=== PATIENT | male | born 1985 | race Caucasian/White ===

== ENCOUNTER 2024-02-08 17:43 | Emergency (ER) | payer MEDICAID, SELFPAY ==
[2024-02-08 18:46] VITALS: BP 122/81; PULSE 97; RESP 18; TEMP 37.2; O2SAT 97
--- NOTE | 2024-02-08 19:07 | XR_ITS ---
Examination: PA lateral chest 2 views Technique: Upright PA lateral chest 2 views Exam date and time: 09/08 2023 1910 hrs. Indications: Coughing beginning 3 days ago. Findings: Normal heart size Suspicious for early pneumonia in the lingular segment left upper lobe Right lung clear Impression: Suspicious for early pneumonia in the lingular segment left upper lobe
--- NOTE | 2024-02-08 19:07 | PD.EDURI ---
Upper Respiratory Inf. RME/HPI General Chief Complaint: General Adult/Misc Complain Stated Complaint: SPITTING UP BLOOD Time Seen by Provider: 02/08/24 19:00 Source: patient Arrival date/time: 02/08/24 17:43 38-year-old male past medical history of everyday smoker presents emergency department complaining of cough and 1 episode of phlegm tinged with blood according the patient. Patient [place] any fever, chills, shortness of breath, weight loss, night sweats, chest pain, or any other associated symptoms. Mode of arrival: ambulatory Limitations: no limitations Related Data Previous Rx's ?Medication ?Instructions ?Recorded azithromycin 250 mg tablet See Rx Instructions PO .COMPLEX #6 02/08/24 tabs ibuprofen 600 mg tablet 600 mg PO Q8H PRN pain #20 tabs 02/08/24 Allergies Allergy/AdvReac Type Severity Reaction Status Date / Time NKA* Allergy Uncoded 02/08/24 17:47 Review of Systems Review of Systems Systems Reviewed: All systems reviewed, normal except as documented Constitutional Constitutional: Reports system reviewed and no additional complaints, except as documented, Denies body ache(s), Denies chills and Denies fever(s) Eyes Eyes: Reports system reviewed and no additional complaints, except as documented and Denies change in vision ENT Ears, Nose, Mouth, and Throat: Reports system reviewed and no additional complaints, except as documented, Denies disequilibrium, Denies dizziness, Denies sore throat and Denies vertigo Cardiovascular Cardiovascular: Reports system reviewed and no additional complaints, except as documented, Denies chest pain and Denies dyspnea Respiratory Respiratory: Reports system reviewed and no additional complaints, except as documented, Denies chest congestion, Reports cough, Denies dyspnea and Reports hemoptysis Gastrointestinal Gastrointestinal: Reports system reviewed and no additional complaints, except as documented, Denies abdominal pain, Denies nausea and Denies vomiting Musculoskeletal Musculoskeletal: Reports system reviewed and no additional complaints, except as documented, Denies abnormal gait and Denies arthralgias Integumentary/Breasts Skin/Breast: Reports system reviewed and no additional complaints, except as documented, Denies erythema, Denies rash and Denies wounds Neurologic Neurologic: Reports system reviewed and no additional complaints, except as documented, Denies abnormal gait, Denies disequilibrium, Denies dizziness and Denies vertigo Past Medical History Social History SMOKING STATUS: Light (< 1 pack/day) ED Exam General Limitations: Present no limitations General appearance: Present alert and in no apparent distress Head Head exam: Present atraumatic Eye Eye exam: Present normal appearance, PERRL and EOMI ENT ENT exam: Present normal exam, normal oropharynx and mucous membranes moist Neck Neck exam: Present normal inspection, full ROM and trachea midline Chest Chest inspection: Present normal inspection and symmetric chest wall rise Respiratory Respiratory exam: Present normal lung sounds bilaterally Cardiovascular Cardiovascular exam: Present regular rate, normal rhythm and normal heart sounds Abdominal Exam Abdominal exam: Present soft and normal bowel sounds Extremities Exam Extremities exam: Present normal inspection and full ROM Back Exam Back exam: Present normal inspection and full ROM Neurological Exam Neurological exam: Present alert, oriented X3 and CN II-XII intact Psychiatric Psychiatric exam: Present normal affect and normal mood Skin Skin exam: Present warm, dry, intact and normal color Course Quality Measures none Orders Category Date Time Status XR chest 2V Stat Exams 02/08/24 19:07 Completed Ibuprofen Tab [Motrin Tab] Med 02/08/24 20:25 Discontinued 600 mg PO X1 ONE Vital Signs Vital signs: Vital Signs Temperature 98.9 F 02/08/24 18:46 Pulse Rate 97 02/08/24 18:46 Respiratory Rate 18 02/08/24 18:46 Blood Pressure 122/81 02/08/24 18:46 Pulse Oximetry (%) 97 02/08/24 18:46 Oxygen Delivery Method Room Air 02/08/24 18:46 97% room air within normal limits Upper Respiratory Infection MDM Narrative MDM Narrative:: 38-year-old male past medical history of everyday smoker presents emergency department complaining of cough and 1 episode of phlegm tinged with blood according the patient. Patient Nuys any fever, chills, shortness of breath, weight loss, night sweats, chest pain, or any other associated symptoms. Patient not appear to be in any respiratory distress and speaking in full sentences. Chest x-ray findings left upper lobe pneumonia. Patient appears nontoxic and hemodynamic stable. Patient discharged oral antibiotics instructed to follow-up with primary care provider and return to emergency department for any worsening symptoms or as needed. Patient data External records reviewed:: None Clinical information provided by:: patient Social determinants that could affect healthcare access:: none Patient has the following chronic illnesses:: Everyday smoker How is presenting disease/condition affected by chronic disease/condition?: exacerbated by Evaluation data The following diagnostics were reviewed and interpreted by me:: radiology exam(s) Lab and/or radiology exams considered but not ordered:: Ordered Interpretation Summary: Interpreted by me Medications / Prescriptions Medications or Prescriptions considered but not ordered:: Ordered Medication administrations:: Medication Administration History Discontinued Medications Ibuprofen (Ibuprofen Tab 600 Mg Tablet) 600 mg PO X1 ONE Stop: 02/08/24 20:26 Last Admin: 02/08/24 20:39 Dose: 600 mg Documented By: EE Given Consultations Consultation(s) initiated? (list below): No Diagnosis Upper Respiratory Differential Diagnosis: upper respiratory infection, viral infection, bronchitis, influenza and pharyngitis Most likely diagnosis given after review of the tests above:: Pneumonia Admission Indicated Admission indicated?: not indicated Admission Request Was there a request for admission?: No Disposition Plan Disposition Plan: Discharge Discharge Attestation Discharge Attestation: The patient and all family members were given an opportunity to ask questions and understood the discharge instructions. Discharge instructions specifically effects, indications for sooner follow up or return to the emergency department, and the expected course of current diagnosis. Patient condition: Stable Discharge Plan Plan Patient Disposition: HOME (Self Care) Disposition Comment: Stable Prescriptions/Referrals Prescriptions/Med Rec: New azithromycin 250 mg tablet See Rx Instructions .ROUTE .COMPLEX Qty: 6 0RF Rx Instructions: For 250 mg dose pack: take 500 mg today (day 1), then 250 mg for 4 days (days 2-5) ibuprofen 600 mg tablet 600 mg PO Q8H PRN (Reason: pain) Qty: 20 0RF Referrals: No Primary/Family,Physician [Primary Care Provider] - In 1 week Problem List Clinical Impression: Community acquired pneumonia Patient/Caregiver Discharge Instructions Discharge Activity: activity as tolerated Education Materials: ED Pneumonia (Adult) Additional Instructions: Take antibiotic as prescribed. Drink plenty of fluids to look for secretions. Follow-up with primary care provider in 2 to 3 days. Return to emergency department for any worsening symptoms or as needed. Print Language: Ugandan Stand Alone Forms: Krista Award Info., Patient Portal Info Letter PA/[employer] Supervising Physician PA/[employer] Supervising Physician: Dr. King
[2024-02-08] MEDS: IBUPROFEN TAB 600 MG TABLET PO (20:39)
== END 2024-02-08 20:41 | disposition home or self-care (01) ==
PROVIDERS: Emergency Provider Emergency Medicine
DX: J18.9 Pneumonia, unspecified organism (principal); F17.210 Nicotine dependence, cigarettes, uncomplicated
CPT/HCPCS: 71046; 99283; A9270

== ENCOUNTER → 2024-03-04 | Outpatient (CLI) | payer MEDICAID, SELFPAY ==
--- NOTE | 2024-03-04 09:04 | XR_ITS ---
Examination: PA lateral chest 2 views TECHNIQUE: Upright PA lateral chest 2 views Exam date and time: March 04, 2024 0916 hours Comparison February 08, 2024 INDICATIONS: Chest pain beginning 2 weeks ago FINDINGS: Normal heart size No current pneumonia The osseous structures are intact IMPRESSION: No pneumonia or pulmonary edema
== END | disposition home or self-care (01) ==
LOC: CDIM 08:54
DX: R07.9 Chest pain, unspecified (principal)
CPT/HCPCS: 71046

== ENCOUNTER 2024-09-04 20:06 | Emergency (ER) | payer MEDICAID, SELFPAY ==
[2024-09-04 20:07] VITALS: BMI 25.2
[2024-09-04 20:20] VITALS: BP 122/83; PULSE 90; RESP 18; TEMP 36.7; O2SAT 99
--- NOTE | 2024-09-04 20:50 | XR_ITS ---
Examination: Abdomen sonogram, complete Date and time of exam: September 04, 2024 2116 hours INDICATIONS: Abdominal pain with hematemesis today. Technique: Multiple real-time grayscale transabdominal sonographic images of the abdomen have been obtained. Findings: 4 mm gallbladder polyp Gallbladder sludge ball Negative for cholelithiasis, negative for cholecystitis Normal common bile duct 0.3 cm Pancreatic head 2.2 cm Aorta not enlarged Liver 11.7 cm fatty infiltration irregular contour Normal hepatopedal portal venous flow Date and IVC Right kidney 9.6 cm renal cortex 1.1 cm Left kidney 10.5 cm cortex 1.8 cm Spleen 8.6 cm IMPRESSION: Negative for cholelithiasis, negative for cholecystitis Suspect primary hepatocellular disease
--- NOTE | 2024-09-04 20:51 | XR_ITS ---
Examination: PA lateral chest 2 views TECHNIQUE: Upright PA lateral chest 2 views Date and time: September 04, 20242057 hours Comparison March 04, 2024 INDICATIONS: Shortness of breath coughing and vomiting beginning 4 days ago FINDINGS: Normal heart size. Lungs are clear. Osseous structures are intact. IMPRESSION: No active disease.
--- NOTE | 2024-09-04 20:53 | EDNOTE_ITS ---
Nausea/Vomit./Diarrhea-RME/HPI General Chief complaint: Nausea/Vomiting/Diarrhea Stated complaint: VOMITED BLOOD Time Seen by Provider: 09/04/24 20:28 Arrival date/time: 09/04/24 20:06 RME / HPI RME / HPI Narrative: 39-year-old male with a past medical history of gastroesophageal reflux disease presents to the ED with a 4-day complaint of vomiting blood. He states that 4 days ago he vomited some black specks and today after eating pizza he vomited bright red blood. He denies any change to the color or texture of his stools. He has had epigastric pain but denies any other abdominal pain. He denies any recent illness with fever, chills but has had a cough with left lateral chest wall pain during cough only. He used to have a prescription for omeprazole but he ran out. He has pain in his esophagus when laying flat. Related Data Previous Rx's ?Medication ?Instructions ?Recorded azithromycin 250 mg tablet See Rx Instructions PO .COM PLEX #6 02/08/24 tabs ibuprofen 600 mg tablet 600 mg PO Q8H PRN pain #20 t abs 02/08/24 omeprazole 20 mg tablet,delayed 20 mg PO QDAY #30 tabs 09/05/24 release ondansetron 4 mg disintegrating 4 mg PO Q6H PRN nausea and 09/05/24 tablet vomiting #10 tabs Allergies Allergy/AdvReac Type Severity Reaction Status Date / Time NKA* Allergy Uncoded 02/08/24 17:47 Review of Systems Review of Systems Systems Reviewed: All systems reviewed, normal except as documented Past Medical History Social History SMOKING STATUS: Former smoker ED Exam Narrative Physical exam: A&O, afebrile and non-toxic appearing 39 year old male, no acute distress. Lungs are clear, RRR, Abdomen is soft with mild epigastric tenderness and non- distended. No rebound or guarding. Moves all extremities well. Course Course Course Narrative: Patient was kept NPO. He was given a GI Cocktail of Maalox 30ml and Viscous Lidocaine 15ml PO. He was also given Protonix 40mg and Zofran 4mg PO. Labs including CBC, CMP, Lipase, Magnesium, Phosphorus, and Urinalysis were ordered and pending. XR chest and Abdominal US ordered and pending. Quality Measures none Orders Category Date Time Status NPO STAT Care 09/04/24 20:50 Active Occult Blood,Stool (Nursing) ONCE Care 09/04/24 21:04 Active US abdomen Stat Exams 09/04/24 20:50 Completed XR chest 2V Stat Exams 09/04/24 20:51 Completed CBC Stat Lab 09/04/24 21:08 Completed Comprehensive Metabolic Panel Stat Lab 09/04/24 21:08 Completed Drug Screen,Urine Stat Lab 09/04/24 21:18 Completed Lipase Stat Lab 09/04/24 21:08 Completed Magnesium Stat Lab 09/04/24 21:08 Completed Phosphorous Stat Lab 09/04/24 21:08 Completed Urinalysis, C/S if Indicated Stat Lab 09/04/24 21:18 Completed Lidocaine 2% Viscous [Xylocaine 2% Viscous] Med 09/04/24 20:52 Discontinued 15 ml PO X1 ONE Ondansetron Inj [Zofran Inj] Med 09/04/24 20:49 Discontinued 4 mg IVP X1 ONE Ondansetron Odt [Zofran Odt] Med 09/04/24 20:56 Discontinued 4 mg PO X1 ONE Pantoprazole [Protonix] Med 09/04/24 20:52 Discontinued 40 mg PO X1 ONE mg Hyd/Al Hyd/Igor Susp [Maalox Susp] Med 09/04/24 20:52 Discontinued 30 ml PO X1 ONE Vital Signs Vital signs: Vital Signs Temperature 98.1 F 09/04/24 20:20 Pulse Rate 90 09/04/24 20:20 Respiratory Rate 18 09/04/24 20:20 Blood Pressure 122/83 09/04/24 20:20 Pulse Oximetry (%) 99 09/04/24 20:20 Oxygen Delivery Method Room Air 09/04/24 20:20 Nausea/Vomiting/Diarrhea Medications / Prescriptions Medication administrations:: Medication Administration History Discontinued Medications Al Hydrox/Mg Hydrox/Simethicone (Mg Hyd/Al Hyd/Igor (Maalox Reg) Susp 30 Ml Udc) 30 ml PO X1 ONE Stop: 09/04/24 20:53 Last Admin: 09/04/24 21:08 Dose: 30 ml Documented By: ROOPA Lidocaine HCl (Lidocaine Viscous 2% 15 Ml Udc) 15 ml PO X1 ONE Stop: 09/04/24 20:53 Last Admin: 09/04/24 21:08 Dose: 15 ml Documented By: ROOPA Ondansetron HCl (Ondansetron Inj 2 Mg/Ml Inj 2 Ml) 4 mg IVP X1 ONE; Protocol Stop: 09/04/24 20:50 Last Admin: 09/04/24 21:07 Dose: Not Given Documented By: ROOPA Non-Admin Reason: Cancelled by Provider Ondansetron HCl (Ondansetron Odt 4 Mg Tabrap) 4 mg PO X1 ONE; Protocol Stop: 09/04/24 20:57 Last Admin: 09/04/24 21:07 Dose: 4 mg Documented By: ROOPA Pantoprazole Sodium (Pantoprazole 40 Mg Tablet) 40 mg PO X1 ONE Stop: 09/04/24 20:53 Last Admin: 09/04/24 21:07 Dose: 40 mg Documented By: ROOPA Discharge Plan Plan Patient Disposition: HOME (Self Care) Discharge Disposition comment: Stable and Improved Prescriptions/Referrals Prescriptions/Med Rec: New omeprazole 20 mg tablet,delayed release (DR/EC) 20 mg PO QDAY Qty: 30 0RF ondansetron 4 mg tablet,disintegrating 4 mg PO Q6H PRN (Reason: nausea and vomiting) Qty: 10 0RF No Action azithromycin 250 mg tablet See Rx Instructions .ROUTE .COMPLEX Qty: 6 0RF Rx Instructions: For 250 mg dose pack: take 500 mg today (day 1), then 250 mg for 4 days (days 2-5) ibuprofen 600 mg tablet 600 mg PO Q8H PRN (Reason: pain) Qty: 20 0RF Referrals: Ethan Cortes FNP [Primary Care Provider] - In 1 week Problem List Clinical Impression: Gastritis Patient/Caregiver Discharge Instructions Education Materials: ED Gastritis (Adult) Additional Instructions: To make sure there is no serious intra-abdominal condition, ask for help with more investigation not available here in the ER. Such as EGD or scoping the stomach, colonoscopy or scoping the colon, and referral to see materials planner. Take the Omeprazole daily to help control your symptoms until you can be seen by the Reconciliation Manager. Follow-up with your primary care physician in 24 to 48 hours. Return to the ED for any new or worsening symptoms. Print Language: Irish Stand Alone Forms: Krista Award Info., Patient Portal Info Letter SUREKHA/LEOLA Supervising Physician JAYJAY Supervising Physician: Dr. King
[2024-09-04] MEDS: ONDANSETRON ODT 4 MG TABRAP PO (21:07)
[2024-09-04] MEDS: PANTOPRAZOLE 40 MG TABLET PO (21:07)
[2024-09-04] MEDS: MG HYD/AL HYD/SIME (Maalox Reg) SUSP 30 ML UDC PO (21:08)
[2024-09-04] MEDS: LIDOCAINE VISCOUS 2% 15 ML UDC PO (21:08)
[2024-09-04 21:27] LABS: Basophils # (Auto) 0.1 Thou/mm3 (0.0-0.2); Basophils % (Auto) 0 % (0-2.5); Eosinophils # (Auto) 0.1 Thou/mm3 (0.0-0.5); Eosinophils % (Auto) 1 % (0-10); Hematocrit 43.9 % (41.0-53.0); Hemoglobin 15.0 g/dL (13.5-16.0); Immature Granulocytes Auto 0.02 Thou/mm3 (0.00-0.00); Lymphocytes # (Auto) 3.8 Thou/mm3 (1.0-4.8); Lymphocytes % (Auto) 34 % (10-50); Mean Corpuscular HGB Conc 34.2 g/dl (31.0-37.0); Mean Corpuscular Hemoglobin 29.4 pg (25.0-35.0); Mean Corpuscular Volume 86 fL (80-100); Monocytes # (Auto) 0.7 Thou/mm3 (0.0-0.8); Monocytes % (Auto) 6 % (0-12); Neutrophils # (Auto) 6.5 Thou/mm3 (1.8-7.7); Neutrophils % (Auto) 58 % (37-80); Nucleated Red Blood Cell # 0.00 Thou/mm3 (0.00-0.00); Nucleated Red Blood Cell % 0 /100 WBC (0); Platelet Count 332 Thou/mm3 (140-440); RDW Standard Deviation 39.8 fL (35.1-43.9); Red Blood Count 5.10 Miln/mm3 (4.50-5.90); White Blood Count 11.1 Thou/mm3 (3.8-10.6)
[2024-09-04 21:59] LABS: Collection Type, Urine Clean Catch; Squamous Epithelial Cell,Urine 0 /hpf (0-5)
[2024-09-04 22:06] VITALS: BP 126/84; PULSE 71; RESP 14; TEMP 37; O2SAT 99
[2024-09-04 22:06] LABS: Bilirubin,Urine Negative (Negative); Blood,Urine Negative (Negative); Clarity,Urine Clear (Clear/Hazy); Color,Urine Colorless (Lt Yel-Yel); Culture Indicated,Urine Not Indicated; Glucose, Urine Negative (Negative); Ketones,Urine Negative (Negative); Leukocyte Esterase,Urine Negative (Negative); Nitrite,Urine Negative (Negative); PH,Urine 6.0 (5.0-7.0); Protein,Urine Negative (Neg - Trace); RBC,Urine 1 /hpf (0-3); Specific Gravity,Urine 1.007 (1.001-1.035); Urobilinogen,Urine Negative mg/dL (0.0-1.0); WBC,Urine 1 /hpf (0-5)
[2024-09-04 22:35] LABS: Amphetamine/Methamp Scrn,U Negative (Negative); Barbiturate Screen,Urine Negative (Negative); Benzodiazepines Screen,Urine Negative (Negative); Benzoylecgonine Screen, Ur Negative (Negative); Fentanyl Screen,Urine Negative (Negative); Opiate Screen,Urine Negative (Negative); THC Screen,Urine Negative (Negative)
[2024-09-04 22:48] LABS: Alanine Aminotransferase 25 U/L (10-49); Albumin, Serum 4.9 gm/dL (3.5-5.0); Albumin/Globulin Ratio 2.2 (1.2-2.2); Alkaline Phosphatase 101 U/L (46-116); Anion Gap 10 (7-16); Aspartate Amino Transferase 26 U/L (0-34); BUN/Creatinine Ratio 5 Ratio (12-20); Bilirubin,Total 0.6 mg/dL (0.3-1.2); Blood Urea Nitrogen 6 mg/dL (9-23); Calcium 10.6 mg/dL (8.3-10.6); Calcium (Corrected) 10.6 mg/dL (8.5-10.1); Carbon Dioxide 27.4 mMol/L (20.0-31.0); Chloride 104 mMol/L (98-107); Creatinine (Component) 1.2 mg/dL (0.6-1.3); Estimated Creatinine Clearance 74.6 mL/min (>60); Globulin 2.2 gm/dL (2.3-3.5); Glucose 98 mg/dL (74-106); Magnesium 1.9 mg/dL (1.6-2.6); Osmolality,Calculated 278 (275-295); Phosphorous 3.4 mg/dL (2.4-5.1); Potassium 3.9 mMol/L (3.4-5.1); Sodium 141 mMol/L (136-145); Total Protein 7.1 gm/dL (5.7-8.2); eGFR > 60 See Note
[2024-09-04 22:53] LABS: Lipase 33 U/L (12-53)
== END 2024-09-05 00:06 | disposition home or self-care (01) ==
PROVIDERS: Physician Assistant; Emergency Provider Emergency Medicine
DX: K29.71 Gastritis, unspecified, with bleeding (principal); R06.02 Shortness of breath; R05.9 Cough, unspecified; R11.2 Nausea with vomiting, unspecified
CPT/HCPCS: 36415; 71046; 76700; 80053; 80307; 81001; 83690; 83735; 84100; 85025; 99284; J3490; Q0162; A9270